=== PATIENT | female | born 1970 | race Caucasian/White ===

== ENCOUNTER → 2023-12-10 14:25 | Outpatient (BNVA) | payer BC, SELFPAY | PROVIDERS: PCP Nurse Practitioner Family; Visit Provider Nurse Practitioner Family | DX: R00.2 Palpitations; Z79.899 Other long term (current) drug therapy; Z13.6 Encounter for screening for cardiovascular disorders | CPT/HCPCS: 74018; 80053; 80061; 81003; 83036; 84443; 85025 ==

== ENCOUNTER 2024-01-06 14:16 | Outpatient (CLI) | payer BC, MEDICAID, SELFPAY ==
--- NOTE | 2024-01-06 14:20 | MM_ITS ---
WS: [id number] BILATERAL 3D TOMOSYNTHESIS DIGITAL SCREENING MAMMOGRAPHY WITH CAD CLINICAL INFORMATION: Z12.31 - Encounter for screening mammogram for malignant ... HISTORY: Screening mammogram. No current complaints. COMPARISON: Baseline TECHNIQUE: Bilateral CC and MLO views. FINDINGS: Scattered fibroglandular densities bilaterally. No suspicious focal mass, asymmetry, calcifications, or architectural distortion. No evidence of malignancy. MM/[place] [id number] IMPRESSION: DENSITY: There are scattered areas of fibroglandular density. BI-RADS: 1 - Negative. FOLLOW UP: 1 Year Follow-up Recommend return to annual screening mammography.
== END 2024-01-06 14:17 | disposition home or self-care (01) ==
LOC: MOBLMAM 14:20
PROVIDERS: PCP Nurse Practitioner Family; Visit Provider Nurse Practitioner Family
DX: Z12.31 Encounter for screening mammogram for malignant neoplasm of breast (principal); R92.323 Mammographic fibroglandular density, bilateral breasts
CPT/HCPCS: 77063; 77067

== ENCOUNTER → 2025-03-03 10:19 | Outpatient (BNVA) | payer BC, MEDICAID, SELFPAY | PROVIDERS: PCP Nurse Practitioner Family; Visit Provider Nurse Practitioner Family | DX: E78.2 Mixed hyperlipidemia (principal); Z79.899 Other long term (current) drug therapy; Z87.442 Personal history of urinary calculi; M25.50 Pain in unspecified joint; R25.2 Cramp and spasm | CPT/HCPCS: 80053; 80061; 81003; 82306; 83036; 83550; 83735; 84443; 85025; 86038; 86200; 86431 ==

== ENCOUNTER → 2025-04-07 13:51 | Outpatient (BNVA) | payer BC, MEDICAID, SELFPAY | PROVIDERS: PCP Nurse Practitioner Family; Visit Provider Nurse Practitioner Family | DX: M51.362 Other intervertebral disc degeneration, lumbar region with discogenic back pain and lower extremity pain (principal); K80.20 Calculus of gallbladder without cholecystitis without obstruction; M41.86 Other forms of scoliosis, lumbar region; M50.30 Other cervical disc degeneration, unspecified cervical region; M41.9 Scoliosis, unspecified; M47.812 Spondylosis without myelopathy or radiculopathy, cervical region; M48.01 Spinal stenosis, occipito-atlanto-axial region | CPT/HCPCS: 72052; 72100 ==

== ENCOUNTER 2025-04-14 10:58 | Outpatient (CLI) | payer BC, MEDICAID, SELFPAY ==
--- NOTE | 2025-04-14 11:00 | US_ITS ---
WS: [id number] RIGHT UPPER QUADRANT ULTRASOUND HISTORY: K80.20 - Calculus of gallbladder without cholecystitis wi... COMPARISON: None available. Liver: 12.7 cm in length. Normal size liver and echogenicity. No bile duct dilatation or mass. Portal Vein: Normal hepatopetal flow with monophasic waveform. Gallbladder: Normally distended gallbladder with numerous stones and shadowing. There are large stones in the gallbladder extending into the neck. No pericholecystic fluid. No gallbladder wall thickening. CBD: 0.9 cm, very limited evaluation of the common bile duct. No intrahepatic duct dilatation. The short segment of the common bile duct noted does appear dilated. Pancreas: Limited. Right kidney: 8.1 cm in length. Mild atrophy and mild cortical thinning. No obstruction. Aorta and IVC: Unremarkable abdominal aorta and IVC. No ascites. US/US gall bladder [id number] IMPRESSION: 1. Cholelithiasis. Numerous stones are present within the gallbladder. Some of these stones are large extending greater than 2 cm in diameter. Recommend eval uation by surgery. 2. Common bile duct is difficult to visualize but there is a segment that is d ilated to 0.9 cm. Recommend follow-up MRCP. No Matias sign at the time of this ultrasound. 3. Mild RIGHT renal atrophy and cortical thinning.
== END 2025-04-14 10:59 | disposition home or self-care (01) ==
LOC: RAD 11:00
PROVIDERS: PCP Nurse Practitioner Family; Visit Provider Nurse Practitioner Family
DX: K80.20 Calculus of gallbladder without cholecystitis without obstruction (principal); R93.2 Abnormal findings on diagnostic imaging of liver and biliary tract; N26.1 Atrophy of kidney (terminal)
CPT/HCPCS: 76705

== ENCOUNTER 2025-04-28 07:26 | Outpatient (CLI) | payer BC, MEDICAID, SELFPAY ==
--- NOTE | 2025-04-28 07:15 | MR_ITS ---
WS: [id number] MRCP (MAGNETIC RESONANCE CHOLANGIOPANCREATOGRAPHY) HISTORY: Cholelithiasis. Abdominal pain is increasing. COMPARISON: Gallbladder ultrasound 04/14/2025 TECHNIQUE: Multiple sequences are performed to evaluate the intra and extrahepatic ducts. Gallbladder is slightly over distended and elongated due to numerous stones within the lumen. No pericholecystic fluid identified. Largest stones measure 2.2 cm in diameter. No filling defects in the common bile duct. There is very slight widening of the proximal common bile duct to 8 mm. Normal tapering towards the ampulla of Vater. No intrahepatic duct dilatation. Normal pancreatic duct. Normal size liver and spleen. Normal pancreas and adrenal glands. 1.4 cm cyst mid posterior RIGHT kidney. 0.5 cm cyst upper pole LEFT kidney. No ascites or adenopathy. No pleural effusions. Visualized heart is normal. Normal abdominal aorta as visualized. MR/MR MRCP [id number] IMPRESSION: 1. Normal common bile duct. No common bile duct stone or obstruction. 2. Elongated gallbladder with numerous stones measuring up to 2.2 cm. Recommen d evaluation by surgery. No evidence for acute cholecystitis. 3. Bilateral renal cysts.
== END 2025-04-28 07:27 | disposition home or self-care (01) ==
PROVIDERS: PCP Nurse Practitioner Family; Visit Provider Nurse Practitioner Family
DX: K80.20 Calculus of gallbladder without cholecystitis without obstruction (principal); K83.8 Other specified diseases of biliary tract; N28.1 Cyst of kidney, acquired
CPT/HCPCS: 74181